=== PATIENT | female | born 1940 | race Caucasian/White ===

== ENCOUNTER 2016-08-03 20:26 | Emergency (ER) | payer MEDICARE, OTHER ==
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
[2016-08-03 20:39] VITALS: BP 130/66; PULSE 79; TEMP 98; BMI 40.0
== END 2016-08-03 21:45 | disposition home or self-care (01) ==
LOC: FER 20:26
DX: S09.90XA Unspecified injury of head, initial encounter (principal); V43.52XA Car driver injured in collision with other type car in traffic accident, initial encounter; Y93.89 Activity, other specified; Y92.410 Unspecified street and highway as the place of occurrence of the external cause; I10 Essential (primary) hypertension; Z85.038 Personal history of other malignant neoplasm of large intestine; Z87.891 Personal history of nicotine dependence
CPT/HCPCS: 70450-TC; 72125-TC; 99281-25

== ENCOUNTER 2017-02-23 10:02 | Day surgery (SDC) | payer OTHER, MEDICARE ==
[2017-02-15 14:03] VITALS: BMI 41.0
[2017-02-23] MEDS ORDERED: LIDOCAINE HCL 2% (20ML MULTI-DOSE VIAL) NR ONE (10:10)
[2017-02-23] MEDS ORDERED: SODIUM BICARBONATE 8.4% 50 MEQ/50 ML VIAL ONE (10:50)
[2017-02-23] MEDS ORDERED: LIDOCAINE 1%/EPI 1:100000 (20 ML MULTI DOSE VIAL) ONE (10:50)
[2017-02-23 11:45] VITALS: PULSE 52; TEMP 97.3
[2017-02-23 12:54] VITALS: BP 104/78
--- NOTE | 2017-02-25 08:12 | OP ---
DATE OF OPERATION: 02/23/2017 PREOPERATIVE DIAGNOSIS: Right carpal tunnel syndrome. POSTOPERATIVE DIAGNOSIS: Right carpal tunnel syndrome. OPERATIVE PROCEDURE: Right carpal tunnel release. SURGEON: Fransisco Boogie MD ANESTHESIA: Local. COMPLICATIONS: None. ESTIMATED BLOOD LOSS: Minimal. INDICATIONS FOR PROCEDURE: The patient is a 76-year-old female with the above findings, indicated for operative treatment. The risks, benefits, and alternatives were discussed with the patient at length, and proper informed consent was obtained. PROCEDURE: After positive identification of the patient and the correct operative site, the patient was brought to the operating room and placed upon the operating table, all prominences were well padded. Local anesthesia was given, 1% lidocaine with epinephrine. This was adequate for the procedure. Right upper extremity was prepped and draped in the usual sterile fashion. Well-padded tourniquet was placed No tourniquet was used. Right upper extremity was prepped and draped in the usual sterile fashion. A longitudinal incision was made over the proximal aspect of the palm. Incision was taken sharply through the skin with blunt and sharp dissection through subcutaneous tissues. Palmar fascia was divided longitudinally. The transverse carpal ligament was divided longitudinally along with the distal 4 cm of antebrachial fascia under direct visualization with loupe magnification. This provided complete release of the median nerve at the wrist. Wound was irrigated with saline and repaired with 5-0 nylon suture. Sterile dressings were applied. The patient was brought to the recovery room in stable condition. [place] [id number]/[id number]
== END 2017-02-23 12:25 | disposition home or self-care (01) ==
LOC: FASU 10:02
PROVIDERS: ATTEND Orthopaedic Surgery Hand Surgery
PROC: 01N50ZZ Release Median Nerve, Open Approach (ICD-10-PCS; principal; 2017-02-23 11:12)
DX: G56.01 Carpal tunnel syndrome, right upper limb (principal)